=== PATIENT | female | born 1965 | race African-American/Black ===

== ENCOUNTER 2019-09-07 13:05 | Emergency (ER) | payer OTHER ==
[~2019-09-07] VITALS: Ht 167.6 cm; Wt 91.0 kg
[2019-09-07] MEDS ORDERED: HYDROCODONE/ACETAMINOPHEN 5/325MG TABLET PO STA (13:34)
[2019-09-07] MEDS ORDERED: IBUPROFEN 400MG TABLET PO ONE (14:45)
[2019-09-07 14:59] VITALS: BP 158/98
== END 2019-09-07 15:03 | disposition home or self-care (01) ==
LOC: ER 13:17
DX: S09.8XXA Other specified injuries of head, initial encounter (principal); S00.03XA Contusion of scalp, initial encounter; R40.2410 Glasgow coma scale score 13-15, unspecified time; V43.62XA Car passenger injured in collision with other type car in traffic accident, initial encounter; Y93.9 Activity, unspecified; Y92.410 Unspecified street and highway as the place of occurrence of the external cause
CPT/HCPCS: 99284